=== PATIENT | female | born 1950 | race Caucasian/White ===

== ENCOUNTER 2022-11-16 10:22 | Outpatient (CLI) | payer MEDICARE, BC, SELFPAY | END 2022-11-16 10:23 | disposition home or self-care (01) | LOC: KYNREF 10:23 | PROVIDERS: PCP Nurse Practitioner Family; Visit Provider Nurse Practitioner Family | DX: I10 Essential (primary) hypertension (principal) | CPT/HCPCS: 80048 ==

== ENCOUNTER 2023-01-22 09:17 | Outpatient (CLI) | payer MEDICARE, BC, SELFPAY | END 2023-01-22 09:18 | disposition home or self-care (01) | LOC: KYNREF 09:18 | PROVIDERS: PCP Nurse Practitioner Family; Visit Provider Nurse Practitioner Family | DX: I10 Essential (primary) hypertension (principal); Z51.81 Encounter for therapeutic drug level monitoring | CPT/HCPCS: 80048 ==

== ENCOUNTER 2023-06-26 07:39 | Outpatient (CLI) | payer MEDICARE, BC, SELFPAY | END 2023-06-26 07:40 | disposition home or self-care (01) | LOC: RAD 07:42 | PROVIDERS: PCP Nurse Practitioner Family; Visit Provider Nurse Practitioner Family | DX: R01.1 Cardiac murmur, unspecified (principal); I10 Essential (primary) hypertension | CPT/HCPCS: 93306 ==

== ENCOUNTER 2023-09-24 09:37 | Outpatient (CLI) | payer MEDICARE, BC, SELFPAY | END 2023-09-24 09:38 | disposition home or self-care (01) | LOC: NFLDREF 09-27 12:08 | PROVIDERS: PCP Nurse Practitioner Family; Referring Provider Nurse Practitioner Family; Visit Provider Nurse Practitioner Family | DX: I10 Essential (primary) hypertension (principal); E78.00 Pure hypercholesterolemia, unspecified | CPT/HCPCS: 80048; 80061 ==

== ENCOUNTER 2023-12-19 09:39 | Outpatient (RCR) | payer MEDICARE, BC, SELFPAY ==
--- NOTE | 2023-12-19 10:35 | PT.OPEX ---
PT [facility] PT [facility] Outpatient Eval Start: 12/16/23 07:20 Freq: Status: Active Protocol: Document 12/19/23 07:06 MLS (Rec: 12/19/23 10:34 MLS [id number]) E-signed By Preethi Sandoval DPT Physical Therapy Outpatient Evaluation Insurance Information Recert Due Date 03/17/24 Insurance Name Medicare B,Blue Cross/[employer] Medical Diagnosis s/p right TKA 01/16/24 z96.651 Presence of right artificial knee joint M17.11 Unilateral primary OA, right knee Treating Diagnosis Knee strengthening Referring MD Dr. Giron Subjective Subjective Patient is a 73 year old female who presents to physical therapy for her pre- op appointment prior to right TKA on 01/16/24. She states that she has been having knee pain for a long time but has not been able to have surgery secondary to her husbands medical issues. Significant past medical history includes hypertension. She did have a recent root canal and tooth infection. She is going to discuss with her primary physician, if she needs to do a round of antibiotics. Pain Comments Today: 0/10 on a 0-10 pain scale with 10 = extreme pain At its worst: 8/10 At its best: 0/10 Current Work Status Retired Occupation Does do some seasonal work Objective Other/Pertinent Objective GAIT/FUNCTIONAL MOBILITY Independent, no assistive device KNEE ROM Left: Grossly tested WNL Right: Extension/Flexion: 0-130 LLE MMT: Hip flexion: R 4+/5 L 4+/5 Hip abduction: R 4+/5 L 4+/5 Hip extension: R 4+/5 L 4+/5 Knee flexion: R 4+/5 L 4+/5 Knee extension: R 4+/5 L 4+/5 TX Reviewed/demonstrated on frequency to perform HEP post operatively including: long sitting quad ankle pumps supine heel slide with strap supine quad sets supine SAQ SLR with quad set seated long arc quad seated knee flexion AAROM supine knee extension stretch on towel roll Extensive discussion and education on what to expect post operatively. Time was spent discussing home modifications, Assistive devices, pain control, fall prevention, hospital stay time line, and assist needed for activities post surgically. Pt questions were answered and demonstrated understanding. Assessment Assessment/Impression Pt is a 73 year old female who presents for her pre-op appointment prior to right TKA on 01/16/24. Patient also has notable objective findings including limited ROM, tenderness to palpation, and decreased strength which are also likely contributing to the problem. Patient is a good candidate for skilled therapy to target deficits described above. Skilled PT intervention is necessary for use of therapeutic exercise manual therapy, neuromuscular re- education, gait training, and therapeutic activity. Functional impairments include difficulty with: standing, walking, exercising and ADLS. See appropriate sections of PT eval for complete list of goals and POC. D/C plan and criteria is for pt to achieve the goals as listed below or until max rehab potential is met. Pt was agreeable with plan of care and goals established. She will complete her post-op therapy in [place]. Primary Functional Limitations standing walking exercising ADLs Plan of Care Rehabilitation Potential Good Physical Therapy Goals STG: (prior to surgery) !. Pt will demonstrate independence in performance of home exercise program with the use of video and/or handouts in order to optimize functional mobility and reduce risk for re-injury. MET Coordination/Communication With Referral Source Treatment Plan/Direct Interventions Neuromuscular Re-ed, Therapeutic Activities, Therapeutic Exercises Patient Will Be Discharged From Therapy Independently Progressing Evaluation Billing Untimed Code Treatment Minutes 30 Complexity Low Certification Information Provider Signature Required Yes Provider Signature Shows Agreement With POC & Medical Necessity Physician NPI Number Write NPI# Here Physician Comment/Change : Physician Signature & Date Requested Please Sign/Date Here
== END 2024-02-05 15:43 | disposition home or self-care (01) ==
PROVIDERS: PCP Nurse Practitioner Family; Visit Provider Orthopaedic Surgery
DX: M17.11 Unilateral primary osteoarthritis, right knee (principal); Z96.651 Presence of right artificial knee joint; Z51.89 Encounter for other specified aftercare
CPT/HCPCS: 97161

== ENCOUNTER 2024-01-06 10:17 | Outpatient (CLI) | payer MEDICARE, BC, SELFPAY | END 2024-01-06 10:18 | disposition home or self-care (01) | PROVIDERS: PCP Nurse Practitioner Family; Visit Provider Nurse Practitioner Family | DX: I10 Essential (primary) hypertension (principal) | CPT/HCPCS: 80053; 85025 ==

== ENCOUNTER 2024-01-16 06:01 | Day surgery (SDC) | payer MEDICARE, BC, SELFPAY ==
[2024-01-16] VITALS (16 sets, daily range): BP systolic 96–128; BP diastolic 45–81; PULSE 53–80; RESP 14–20; TEMP 36.3–36.9; O2SAT 96–98; BMI 23.8
[2024-01-16] MEDS: ACETAMINOPHEN 500 MG TABLET 1000 MG PO (06:30)
[2024-01-16] MEDS: OXYCODONE (CR) 10 MG TAB.ER.12H PO (06:30)
[2024-01-16] MEDS: CELECOXIB 200 MG CAPSULE PO (06:30)
[2024-01-16] MEDS: LACTATED RINGERS 1000 ML 1,000 ML 100 ML IV ×2 (06:45→08:41)
[2024-01-16] MEDS: SODIUM CHLORIDE 0.9 % (FLUSH) 10 ML SYRINGE IVF (06:45)
[2024-01-16] MEDS: MIDAZOLAM HCL 1 MG/ML inj IVP (07:05)
[2024-01-16] MEDS: fentaNYL 100 MCG/2 ML inj IVP (07:05)
--- NOTE | 2024-01-16 07:11 | SUR.PREOP ---
TIME?OUT:?05 PT/RN/MDA?VERIFICATION?OF?SURGICAL?SITE,?PROCEDURE,?AND?CONSENT OBTAINED?PRIOR?TO?INVASIVE?PROCEDURE.
[2024-01-16] MEDS: TRANEXAMIC ACID 100 MG/ML INJ 1000 MG IV (07:25)
[2024-01-16] MEDS: CEFAZOLIN 2 GM INJ IVP (07:25)
--- NOTE | 2024-01-16 08:47 | CRLHL7_ITS ---
For Patients: As a result of the Cures Act, medical imaging exams and procedure reports are released immediately into your electronic medical record. You may view this report before your referring provider. If you have questions, please contact your health care provider. Indication: POST OP TKA Technique: Two views right knee Findings/Impression: Hardware from a right total knee arthroplasty is in satisfactory position. Bone alignment is normal. No sign of acute fracture. Postop changes are within normal limits. Dictated by Tee Gunn MD @ 01/16/2024 10:21:43 AM (Electronically Signed)
--- NOTE | 2024-01-16 08:48 | PM.ORPRC ---
Procedure Note Date of procedure: 01/16/24 Procedure: PREOPERATIVE DIAGNOSIS: Right knee osteoarthritis POSTOPERATIVE DIAGNOSIS: Right knee osteoarthritis NAME OF OPERATION: Right total knee arthroplasty SURGEON: Elbert Giron MD STEP FINISHER: Raymond Hanson PA-C ANESTHESIA: Spinal ESTIMATED BLOOD LOSS: 0 mL COMPLICATIONS: None SPECIMENS: None DRAINS: None PREOPERATIVE ANTIBIOTICS: Ancef 1 g IMPLANTS: 1. J&J Attune #6 posterior stabilized femur 2. # 5 fixed-bearing tibia 3. #6 posterior stabilized, 6 mm fixed-bearing polyethylene 4. 38 patella INDICATIONS: The patient is a 74-year-old with a longstanding history of severe, unrelenting right knee pain secondary to end-stage (grade IV) right knee osteoarthritis. Despite appropriate nonoperative management, including activity modification, anti-inflammatories, scci-xji-zzypeui pain medication, bracing, physical therapy, and injections they continue to have pain and disability. Operative intervention was offered. The risks, benefits and expected outcomes were discussed in detail. These included but were not limited to: Infection, bleeding, injury to blood vessel or nerve, venous thromboembolism. All questions were answered to their satisfaction. Use of an promotions assistant sales marketing was necessary throughout the case for patient positioning and safety, soft tissue retraction, and closure. PROCEDURE: Spinal anesthesia was administered. The patient was placed supine on the operating table. The promotions assistant sales marketing made sure the patient was positioned appropriately. The lower extremity was prepped and draped in the usual sterile fashion. The limb was exsanguinated with the Marcus bandage. The pneumatic tourniquet was inflated to 300 mmHg. A standard anterior incision was made with the knee in flexion. Subcutaneous dissection was sharply taken through fascial layer #1. Full-thickness medial and lateral flaps were elevated. The promotions assistant sales marketing retracted the soft tissues and protected them throughout the case. A standard subvastus approach was made. The patella was subluxed. The infrapatellar fat pad was preserved. The menisci and cruciate ligaments were sharply d?brided. Marginal osteophytes were d?brided with the rongeur. The drill was used to penetrate the femoral canal. The canal was aspirated and irrigated with pulse lavage. The intramedullary femoral guide was placed for a 5-degree valgus cut, removing 10 mm off the distal femur. The saw was used to make the cut. Whitesides line and the trans epicondylar axis were marked. The femoral sizing guide was pinned onto the distal femur. Three degrees of external rotation nicely parallels the transepicondylar axis. Pins were placed for posterior referencing. The four-in-one cutting guide was pinned onto the distal femur. The anterior, posterior, and chamfer cuts were made. The promotions assistant sales marketing protected the collateral ligaments. The box cutting guide was pinned. The box cuts were made. The boxed trial was placed and was an excellent fit. Drill holes for the lugs were made. Attention was then turned to the proximal tibia. The extramedullary tibial guide was placed for a neutral varus/valgus cut with 5 degrees of posterior slope, removing 0 mm based off the medial tibial surface. The promotions assistant sales marketing protected the collateral ligaments and the neurovascular bundle. The saw was used to make the cut. Trial components were placed. The knee was nicely balanced in both flexion and extension. The trial components were removed. The tray was placed in appropriate rotation, parallel to our tibial cutting pins. It was pinned by the promotions assistant sales marketing and the drill and the punch were used. The tray was removed. The punch was used again. We placed a bone plug in the femoral canal. Attention was then turned to the patella. [place] patellar thickness was 24 mm. The lobster claw resection guide was used with the 9.5 mm yolande. The saw was used to make the cut. Drill holes were made by the promotions assistant sales marketing. The trial was placed and was an excellent fit. Cancellous surfaces were irrigated with pulse lavage and thoroughly dried by the promotions assistant sales marketing. We cemented the tibial component, then the femoral component. We impacted the 6 mm polyethylene onto the tibial tray. The knee was brought into full extension. We then cemented the patellar component. Excessive cement was removed. The cement was allowed to harden. The knee was taken through a range of motion and was found to be nicely balanced in both flexion and extension. The patella tracks centrally. The promotions assistant sales marketing did a three minute dilute Betadine solution soak. The promotions assistant sales marketing irrigated the wound with 3 liters of normal saline via pulse lavage. The promotions assistant sales marketing reapproximated the extensor mechanism with #1 Vicryl in an interrupted jvydpd-kq-jlewj fashion. The promotions assistant sales marketing then ran the extensor mechanism with a #1 PDO Stratafix. The promotions assistant sales marketing closed the subcutaneous tissues with a 3-0 Stratafix and the skin with a running 3-0 Stratafix in a subcuticular fashion. Glue was used to seal the skin. The promotions assistant sales marketing placed a dry dressing. Sponge and needle counts were correct x2. The patient tolerated the procedure well. There were no apparent complications. They were carefully transferred to the hospital bed and taken to the postanesthesia care unit in satisfactory condition. PLAN: The patient will be mobilized with physical therapy. Aspirin will be used for DVT prophylaxis. They will be discharged to home once medically appropriate.
--- NOTE | 2024-01-16 09:46 | W.ANESCHARGE ---
Anesthesia Charges Start Date/Time Anesthesia Start Date: 01/16/24 Anesthesia Start Time: 07:18 Stop Date/Time Anesthesia Stop Date: 01/16/24 Anesthesia Stop Time: 09:44
--- NOTE | 2024-01-16 10:04 | W.ANESCHARGE ---
Anesthesia Charges Start Date/Time Anesthesia Start Date: 01/16/24 Anesthesia Start Time: 07:18 Stop Date/Time Anesthesia Stop Date: 01/16/24 Anesthesia Stop Time: 09:44 Summary Extremes of Age - Over 70 or under 1: MDA
--- NOTE | 2024-01-16 10:04 | W.PM.NB ---
Nerve Block Nerve Block Time Seen by Provider: 07:09 Date Seen: 01/16/24 Type of block requested by surgeon for post-operative analgesia: adductor canal Side: right Time out performed: Yes Verification of patient name: Yes Verification of date of : Yes Site marking: site marked Name of person performing procedure: Janes Continuous monitoring Was continuous monitoring of O2 sat, B/P, environmental monitoring specialist, recorded every 15 minutes?: Yes Procedure Checklist: sterile prep, needles and gloves Ultrasound guided. Images saved: Yes Medications given in 5ml increments after negative aspiration: Ropivicaine %: 0.5 mL: 20 Needle gauge: 20 Decadron (mg): 10 Precedex (mcg): 25 Patient tolerated procedure well: Yes Additional comments: Needle noted adjacent to nerve Block Charges Block Charge (with Pro Fee): Femoral Nerve Use of Ultrasound Machine for Block: Yes- US Guidance/pain block
--- NOTE | 2024-01-16 10:05 | W.PM.NB ---
Nerve Block Nerve Block Time Seen by Provider: 07:09 Date Seen: 01/16/24 Type of block requested by surgeon for post-operative analgesia: geniculars Side: right Time out performed: Yes Verification of patient name: Yes Verification of date of : Yes Site marking: site marked Name of person performing procedure: Janes Continuous monitoring Was continuous monitoring of O2 sat, B/P, property assessment monitor, recorded every 15 minutes?: Yes Procedure Checklist: sterile prep, needles and gloves Medications given in 5ml increments after negative aspiration: Ropivicaine %: 0.5 mL: 9 Needle gauge: 25 Patient tolerated procedure well: Yes Block Charges Block Charge (with Pro Fee): Genicular Nerve Block Use of Ultrasound Machine for Block: No
--- NOTE | 2024-01-16 10:17 | SUR.PHASEI ---
patient meets pacu d/c criteria
[2024-01-16] MEDS: OXYCODONE 5 MG TABLET PO (13:06)
--- NOTE | 2024-01-16 13:46 | SUR.PHASEII ---
Pt transported by Phase II RN to PT at 1330.
--- NOTE | 2024-01-16 14:35 | SUR.PHASEI ---
PATIENT DISCHARGED AT 1435 ON 01/16/24 WITH SON AND SPOUSE. IV REMOVED. UNABLE TO ACCESS PHASE II CHARTING WILL COMPLETE WHEN ABLE.
== END 2024-01-16 14:30 | disposition home or self-care (01) ==
LOC: OR 06:04
PROVIDERS: PCP Nurse Practitioner Family; Visit Provider Orthopaedic Surgery
PROC: (CPT 27447; principal; 2024-01-16 07:15)
DX: M17.11 Unilateral primary osteoarthritis, right knee (principal); G89.18 Other acute postprocedural pain; I10 Essential (primary) hypertension
CPT/HCPCS: 27447; 01402; 73560; 76942; 97110; 97116; 97161; 99100; A9270; C1776; J0690; J1100; J2250; J2405; J2704; J2795; J3010; J7120

== ENCOUNTER 2024-02-28 10:11 | Outpatient (CLI) | payer MEDICARE, BC, SELFPAY | END 2024-02-28 10:12 | disposition home or self-care (01) | LOC: KYNREF 10:11 | PROVIDERS: PCP Nurse Practitioner Family; Visit Provider Nurse Practitioner Family | DX: I10 Essential (primary) hypertension (principal) | CPT/HCPCS: 80048 ==

== ENCOUNTER 2024-09-14 10:16 | Outpatient (CLI) | payer MEDICARE, BC, SELFPAY | END 2024-09-14 10:17 | disposition home or self-care (01) | LOC: KYNREF 10:17 | PROVIDERS: PCP Nurse Practitioner Family; Visit Provider Nurse Practitioner Family | DX: I10 Essential (primary) hypertension (principal) | CPT/HCPCS: 80048 ==

== ENCOUNTER 2024-10-13 10:20 | Outpatient (CLI) | payer MEDICARE, BC, SELFPAY | END 2024-10-13 10:21 | disposition home or self-care (01) | PROVIDERS: PCP Nurse Practitioner Family; Visit Provider Nurse Practitioner Family | DX: I10 Essential (primary) hypertension (principal) | CPT/HCPCS: 80053; 85025 ==

== ENCOUNTER 2024-10-29 06:04 | Day surgery (SDC) | payer MEDICARE, BC, SELFPAY ==
[2024-10-29] VITALS (19 sets, daily range): BP systolic 100–137; BP diastolic 54–75; PULSE 48–73; RESP 13–16; TEMP 36.2–36.8; O2SAT 91–100; BMI 25.0
[2024-10-29] MEDS: ACETAMINOPHEN 500 MG TABLET 1000 MG PO ×2 (06:30→12:30)
[2024-10-29] MEDS: SODIUM CHLORIDE 0.9 % (FLUSH) 10 ML SYRINGE IVF (06:32)
[2024-10-29] MEDS: OXYCODONE (CR) 10 MG TAB.ER.12H PO (06:32)
[2024-10-29] MEDS: CELECOXIB 200 MG CAPSULE PO (06:32)
[2024-10-29] MEDS: LACTATED RINGERS 1000 ML 1,000 ML 100 ML IV ×2 (06:32→10:29)
[2024-10-29] MEDS: MIDAZOLAM HCL 1 MG/ML inj IVP (07:12)
[2024-10-29] MEDS: fentaNYL 100 MCG/2 ML inj IVP (07:12)
--- NOTE | 2024-10-29 07:14 | SUR.PREOP ---
TIME?OUT:?0711 PT/RN/MDA?VERIFICATION?OF?SURGICAL?SITE,?PROCEDURE,?AND?CONSENT OBTAINED?PRIOR?TO?INVASIVE?PROCEDURE.
[2024-10-29] MEDS: TRANEXAMIC ACID 100 MG/ML INJ 1000 MG IV (07:30)
[2024-10-29] MEDS: CEFAZOLIN 1 GM inj IVP (07:30)
--- NOTE | 2024-10-29 07:49 | SUR.OPER ---
PATIENT QUESTIONS ANSWERED SATISFACTORILY PREOPERATIVELY.? PATIENT BROUGHT TO OR #2 PER CART AFTER ADMINISTRATION OF A BLOCK.? Patient positioned supine on OR #2 bed.? The perioperative?team supported arms bilaterally on arm boards.? Final approval of positioning by surgeon.?
--- NOTE | 2024-10-29 08:41 | CRLHL7_ITS ---
For Patients: As a result of the Cures Act, medical imaging exams and procedure reports are released immediately into your electronic medical record. You may view this report before your referring provider. If you have questions, please contact your health care provider. Indication: Left knee replacement. Technique: AP and lateral views of the left knee. Comparison: Left knee radiograph 06/23/2024. Findings: Asymmetric 3 component left knee arthroplasty has been placed. Components are well positioned. There are postoperative changes within the left knee soft tissues. No other retained radiopaque metallic surgical foreign body. Impression: Status post knee replacement. Dictated by Elvin Contreras MD @ 10/29/2024 1:46:14 PM (Electronically Signed)
--- NOTE | 2024-10-29 08:45 | P.ORPRC_ITS ---
Procedure Note Date of procedure: 10/29/24 Procedure: PREOPERATIVE DIAGNOSIS: Left knee osteoarthritis POSTOPERATIVE DIAGNOSIS: Left knee osteoarthritis NAME OF OPERATION: Left total knee arthroplasty SURGEON: Elbert Giron MD UPPER MARKER: vAis Betancourt PA-C ANESTHESIA: Spinal ESTIMATED BLOOD LOSS: 0 mL COMPLICATIONS: None SPECIMENS: None DRAINS: None PREOPERATIVE ANTIBIOTICS: Ancef 1 g IMPLANTS: 1. J&J Attune #6 posterior stabilized femur 2. #5 fixed-bearing tibia 3. #6 posterior stabilized, 6 mm fixed-bearing polyethylene 4. 38 patella INDICATIONS: The patient is a 74-year-old with a longstanding history of severe, unrelenting left knee pain secondary to end-stage (grade IV) left knee osteoarthritis. Despite appropriate nonoperative management, including activity modification, anti-inflammatories, dzpw-ohu-zgfntty pain medication, bracing, physical therapy, and injections they continue to have pain and disability. Operative intervention was offered. The risks, benefits and expected outcomes were discussed in detail. These included but were not limited to: Infection, bleeding, injury to blood vessel or nerve, venous thromboembolism. All questions were answered to their satisfaction. Use of an funeral assistant was necessary throughout the case for patient positioning and safety, soft tissue retraction, and closure. PROCEDURE: Spinal anesthesia was administered. The patient was placed supine on the operating table. The funeral assistant made sure the patient was positioned appropriately. The lower extremity was prepped and draped in the usual sterile fashion. The limb was exsanguinated with the Marcus bandage. The pneumatic tourniquet was inflated to 300 mmHg. A standard anterior incision was made with the knee in flexion. Subcutaneous dissection was sharply taken through fascial layer #1. Full-thickness medial and lateral flaps were elevated. The funeral assistant retracted the soft tissues and protected them throughout the case. A standard subvastus approach was made. The patella was subluxed. The infrapatellar fat pad was debrided. The menisci and cruciate ligaments were sharply d?brided. Marginal osteophytes were d?brided with the rongeur. The drill was used to penetrate the femoral canal. The canal was aspirated and irrigated with pulse lavage. The intramedullary femoral guide was placed for a 5-degree valgus cut, removing 10 mm off the distal femur. The saw was used to make the cut. Whitesides line and the trans epicondylar axis were marked. The femoral sizing guide was pinned onto the distal femur. Three degrees of external rotation nicely parallels the transepicondylar axis. Pins were placed for posterior referencing. The four-in-one cutting guide was pinned onto the distal femur. The anterior, posterior, and chamfer cuts were made. The funeral assistant protected the collateral ligaments. The box cutting guide was pinned. The box cuts were made. The boxed trial was placed and was an excellent fit. Drill holes for the lugs were made. Attention was then turned to the proximal tibia. The extramedullary tibial guide was placed for a neutral varus/valgus cut with 5 degrees of posterior slope, removing 0 mm based off the medial tibial surface. The funeral assistant protected the collateral ligaments and the neurovascular bundle. The saw was used to make the cut. Trial components were placed. The knee was nicely balanced in both flexion and extension. The trial components were removed. The tray was placed in appropriate rotation, parallel to our tibial cutting pins. It was pinned by the funeral assistant and the drill and the punch were used. The tray was removed. The punch was used again. We placed a bone plug in the femoral canal. Attention was then turned to the patella. [place] patellar thickness was 25 mm. The lobster claw resection guide was used with the 9.5 mm yolande. The saw was used to make the cut. Drill holes were made by the funeral assistant. The trial was placed and was an excellent fit. Cancellous surfaces were irrigated with pulse lavage and thoroughly dried by the funeral assistant. We cemented the tibial component, then the femoral component. We impacted the 6 mm polyethylene onto the tibial tray. The knee was brought into full extension. We then cemented the patellar component. Excessive cement was removed. The cement was allowed to harden. The knee was taken through a range of motion and was found to be nicely balanced in both flexion and extension. The patella tracks centrally. The funeral assistant did a three minute dilute Betadine solution soak. The funeral assistant irrigated the wound with 3 liters of normal saline via pulse lavage. The funeral assistant reapproximated the extensor mechanism with #1 Vicryl in an interrupted hgmstd-ha-baryp fashion. The funeral assistant then ran the extensor mechanism with a #1 PDO Stratafix. The funeral assistant closed the subcutaneous tissues with a 3-0 Stratafix and the skin with a running 3-0 Stratafix in a subcuticular fashion. Glue was used to seal the skin. The funeral assistant placed a dry dressing. Sponge and needle counts were correct x2. The patient tolerated the procedure well. There were no apparent complications. They were carefully transferred to the hospital bed and taken to the postanesthesia care unit in satisfactory condition. PLAN: The patient will be mobilized with physical therapy. Aspirin will be used for DVT prophylaxis. They will be discharged to home once medically appropriate.
--- NOTE | 2024-10-29 09:36 | P.ANES_ITS ---
Anesthesia Charges Start Date/Time Anesthesia Start Date: 10/29/24 Anesthesia Start Time: 07:18 Stop Date/Time Anesthesia Stop Date: 10/29/24 Anesthesia Stop Time: 09:36 Summary Extremes of Age - Over 70 or under 1: ZINC ETCHER Coding CPT Codes CPT Codes: ANESTH KNEE ARTHROPLASTY - 90734 ([id number]) P2 - PATIENT W/MILD SYST DISEASE, QK - LIQUOR BRIDGE OPERATOR 2-4 CNCRNT ANES PROC Additional Codes: Summary - Extremes of Age - Over 70 or under 1: ZINC ETCHER ([id number])
--- NOTE | 2024-10-29 09:36 | P.ANES_ITS ---
Anesthesia Charges Start Date/Time Anesthesia Start Date: 10/29/24 Anesthesia Start Time: 07:19 Stop Date/Time Anesthesia Stop Date: 10/29/24 Anesthesia Stop Time: 09:36 Summary Extremes of Age - Over 70 or under 1: MDA Coding CPT Codes CPT Codes: ANESTH KNEE ARTHROPLASTY - 79229 ([id number]) P2 - PATIENT W/MILD SYST DISEASE, QK - WORKDAY FINANCIALS CONSULTANT 2-4 CNCRNT ANES PROC, QX - MIX CHEMIST SVC W/ MD MED DIRECTION Additional Codes: Summary - Extremes of Age - Over 70 or under 1: MDA ([id number])
--- NOTE | 2024-10-29 09:36 | W.ANESCHARGE ---
Anesthesia Charges Start Date/Time Anesthesia Start Date: 10/29/24 Anesthesia Start Time: 07:18 Stop Date/Time Anesthesia Stop Date: 10/29/24 Anesthesia Stop Time: 09:36 Summary Extremes of Age - Over 70 or under 1: DEVELOPMENT WRITER Coding CPT Codes CPT Codes: ANESTH KNEE ARTHROPLASTY - 01204 ([id number]) P2 - PATIENT W/MILD SYST DISEASE, QK - HOOK PULLER 2-4 CNCRNT ANES PROC Additional Codes: Summary - Extremes of Age - Over 70 or under 1: DEVELOPMENT WRITER ([id number])
--- NOTE | 2024-10-29 09:36 | W.ANESCHARGE ---
Anesthesia Charges Start Date/Time Anesthesia Start Date: 10/29/24 Anesthesia Start Time: 07:19 Stop Date/Time Anesthesia Stop Date: 10/29/24 Anesthesia Stop Time: 09:36 Summary Extremes of Age - Over 70 or under 1: MDA Coding CPT Codes CPT Codes: ANESTH KNEE ARTHROPLASTY - 99990 ([id number]) P2 - PATIENT W/MILD SYST DISEASE, QK - SCANNER OPERATOR 2-4 CNCRNT ANES PROC, QX - OUTSIDE SALES INSPECTOR SVC W/ MD MED DIRECTION Additional Codes: Summary - Extremes of Age - Over 70 or under 1: MDA ([id number])
--- NOTE | 2024-10-29 09:37 | W.PM.NB ---
Nerve Block Nerve Block Time Seen by Provider: 07:15 Date Seen: 10/29/24 Type of block requested by surgeon for post-operative analgesia: adductor canal Side: left Time out performed: Yes Verification of patient name: Yes Verification of date of : Yes Site marking: site marked Name of person performing procedure: Janes Continuous monitoring Was continuous monitoring of O2 sat, B/P, air sampling and monitoring, recorded every 15 minutes?: Yes Procedure Checklist: sterile prep, needles and gloves Ultrasound guided. Images saved: Yes Medications given in 5ml increments after negative aspiration: Marcaine %: 0.25 mL: 15 Needle gauge: 20 Precedex (mcg): 25 Patient tolerated procedure well: Yes Block Charges Block Charge (with Pro Fee): Femoral Nerve Use of Ultrasound Machine for Block: Yes- US Guidance/pain block
--- NOTE | 2024-10-29 09:38 | W.PM.NB ---
Nerve Block Nerve Block Time Seen by Provider: 07:15 Date Seen: 10/29/24 Type of block requested by surgeon for post-operative analgesia: geniculars Side: left Time out performed: Yes Verification of patient name: Yes Verification of date of : Yes Site marking: site marked Name of person performing procedure: Janes Continuous monitoring Was continuous monitoring of O2 sat, B/P, telemetry monitor, recorded every 15 minutes?: Yes Procedure Checklist: sterile prep, needles and gloves Ultrasound guided. Images saved: Yes Medications given in 5ml increments after negative aspiration: Marcaine %: 0.25 mL: 9 Needle gauge: 25 Patient tolerated procedure well: Yes Block Charges Block Charge (with Pro Fee): Genicular Nerve Block
--- NOTE | 2024-10-29 10:10 | SUR.PHASEI ---
patient met discharge criteria per anesthesia
--- NOTE | 2024-10-29 11:54 | SUR.PHASEII ---
Patient requesting food, tolerating toast, yogurt and water.
--- NOTE | 2024-10-29 13:16 | SUR.PHASEII ---
Patient to PT at 1315.
[2024-10-29] MEDS: OXYCODONE 5 MG TABLET PO (14:12)
== END 2024-10-29 14:25 | disposition home or self-care (01) ==
LOC: OR 06:08
PROVIDERS: PCP Nurse Practitioner Family; Visit Provider Orthopaedic Surgery
PROC: (CPT 27447; principal; 2024-10-29 07:15)
DX: M17.12 Unilateral primary osteoarthritis, left knee (principal); G89.18 Other acute postprocedural pain
CPT/HCPCS: 27447; 01402; 64447; 64454; 73560; 76942; 97110; 97116; 97161; 97530; 99100; A9270; C1776; J0665; J0690; J1100; J1171; J2250; J2405; J2704; J3010; J3490; J7120